=== PATIENT | female | born 1965 | race Caucasian/White ===

== ENCOUNTER 2018-11-09 18:27 | Emergency (ER) | payer OTHER, BC ==
[2018-11-09] MEDS ORDERED: Diphtheria,Pertussis(Acell),Tetanus Vaccine 0.5 ML Syringe IM ONE (18:29)
[2018-11-09] MEDS ORDERED: Bacitracin Oint 1 GM U/D Packet TOP ONE (18:30)
[2018-11-09] MEDS ORDERED: Octyl 2-Cyanoacrylate 1 Tube TOP ONE (19:01)
--- NOTE | 2018-11-09 19:08 | EDM.PDOC ---
ED HPI GENERAL MEDICAL PROBLEM - General Chief Complaint: Laceration Stated Complaint: CUT HAND AT WORK Time Seen by Provider: 11/09/18 18:30 Source of Information: Reports: Patient History Limitations: Reports: No Limitations - History of Present Illness INITIAL COMMENTS - FREE TEXT/NARRATIVE: HISTORY AND PHYSICAL: History of present illness: Patient is a 53-year-old female who presents to the emergency room with complaints of a laceration to the inner right forearm. She states that a glass door Broke resulting in a superficial laceration of the right inner forearm. She is concerned as there was a moderate amount of bleeding. She is unsure of her last tetanus update. Appears to have no tendon involvement and she does have full range of motion of the wrist, hand and fingers. Review of systems: As per history of present illness and below otherwise all systems reviewed and negative. Past medical history: As per history of present illness and as reviewed below otherwise noncontributory. Surgical history: As per history of present illness and as reviewed below otherwise noncontributory. Social history: See social history for further information Family history: As per history of present illness and as reviewed below otherwise noncontributory. Physical exam: General: Well-developed and well-nourished 53-year-old female. Alert and oriented. Nontoxic appearing and in no acute distress. HEENT: Atraumatic, normocephalic, pupils equal and reactive bilaterally, negative for conjunctival pallor or scleral icterus, mucous membranes moist, TMs normal bilaterally, throat clear, neck supple, nontender, trachea midline. No drooling or trismus noted. No meningeal signs. No hot potato voice noted. Lungs: Clear to auscultation, breath sounds equal bilaterally, chest nontender. Heart: S1S2, regular rate and rhythm without overt murmur Abdomen: Soft, nondistended, nontender. Negative for masses or hepatosplenomegaly. Negative for costovertebral tenderness. Pelvis: Stable nontender. Genitourinary: Deferred. Rectal: Deferred. Skin: 1.5 cm x 1.5 cm "X" superficial laceration to the right inner wrist. Unable to separate the skin therefore sutures cannot be placed. Does have a small 0.5 superficial laceration to the base of the left thumb. Otherwise skin is intact, warm, dry. No lesions or rashes noted. Extremities: Atraumatic, negative for cords or calf pain. Neurovascular unremarkable. Neuro: Awake, alert, oriented. Cranial nerves II through XII unremarkable. Cerebellum unremarkable. Motor and sensory unremarkable throughout. Exam nonfocal. Notes: Area is unable to be sutured closed as it is superficial. Area was thoroughly cleansed with chlorhexidine. Dermabond used to right wrist. Nonstick dressing applied with an Jonnathan wrap as it does appear like it is kind of bruise. The left thumb lack was cleansed and bacitracin applied. Supportive care measures were reviewed and discussed. Voices understanding and is agreeable to plan of care. Denies any further questions or concerns at this time. Diagnostics: None Therapeutics: Tdap, Dermabond, wound care, jonnathan wrap Prescription: None Impression: Laceration Plan: 1. Keep the area clean and dry. Continue to monitor for signs of infection. Sutures to be removed in 7-10 days. 2. Tylenol and/or ibuprofen as needed for pain management. 3. Please follow-up with your primary care provider in the next 1-2 days. Return to the ED as needed and as discussed. Definitive disposition and diagnosis as appropriate pending reevaluation and review of above. Generalized Pain Score (Numeric/FACES): 2 - Related Data Allergies Allergy/AdvReac Type Severity Reaction Status Date / Time Sulfa (Sulfonamide Allergy Rash Verified 11/09/18 18:41 Antibiotics) Home Meds: Home Meds ALPRAZolam [Alprazolam] 0.5 mg PO BEDTIME PRN 05/30/14 [History] ALPRAZolam [Alprazolam] 1 tab PO PRN 05/30/14 [History] Brimonidine Tartrate 5 ml OP ASDIRECTED 05/30/14 [History] Cholecalciferol (Vitamin D3) [Vitamin D3] 1 tab PO ASDIRECTED 05/30/14 [History] Cyclobenzaprine [Flexeril] 10 mg PO TID PRN 05/30/14 [History] Fish Oil/[place]-3 Fatty Acids [Fish Oil 1,000 MG] 1 tab PO ASDIRECTED 05/30/14 [ History] Multivitamin [Multi-Vitamin Daily] 1 tab PO DAILY 05/30/14 [History] Ranitidine HCl [Ranitidine] 1 tab PO PRN 05/30/14 [History] Lisinopril 10 mg PO BID 11/09/18 [History] Past Medical History 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 ED EXAM, SKIN/RASH Exam: See Below (See dictation) ED SKIN PROCEDURES - Laceration/Wound Repair Right wrist Lac/Wound length In cm: 3 (1.5 x 1.5) Appearance: Superficial, Clean Distal NVT: Neuro & Vascular Intact, No Tendon Injury Closed with: Dermabond Sterile Dressing Applied: None Tetanus Status Addressed: Yes Complications: No Course - Vital Signs Last Recorded V/S: Last Vital Signs Temp 97.4 F 11/09/18 18:44 Pulse 95 11/09/18 18:44 Resp 17 11/09/18 18:44 BP 164/94 H 11/09/18 18:44 Pulse Ox 95 11/09/18 18:44 - Orders/Labs/Meds Orders: Active Orders 24 hr Category Date Time Status Communication Order [RC] STAT Care 11/09/18 18:30 Active Vaccines to be Administered [RC] PER UNIT ROUTINE Care 11/09/18 18:30 Active Octyl 2-Cyanoacrylate [Dermabond Advance] Med 11/09/18 19:01 Once 1 applic TOP ONETIME ONE Meds: Medications Discontinued Medications Generic Name Dose Route Start Last Admin Trade Name Freq PRN Reason Stop Dose Admin Bacitracin 1 dose 11/09/18 18:30 Bacitracin Oint 1 Gm TOP 11/09/18 18:31 ONETIME ONE Diphtheria/Tetanus/Acell Pertussis 0.5 ml 11/09/18 18:29 Adacel IM 11/09/18 18:30 .ONCE ONE Lidocaine HCl 5 ml 11/09/18 18:29 Xylocaine-Mpf 1% INJECT 11/09/18 18:30 ONETIME ONE Departure - Departure Time of Disposition: 19:08 Disposition: Home, Self-Care 01 Clinical Impression: Laceration - Discharge Information Instructions: Laceration Care, Adult, [id number] Referrals: PCP,None [Primary Care Provider] - Additional Instructions: The following information is given to patients seen in the emergency department who are being discharged to home. This information is to outline your options for follow-up care. We provide all patients seen in our emergency department with a follow-up referral. The need for follow-up, as well as the timing and circumstances, are variable depending upon the specifics of your emergency department visit. If you don't have a primary care physician on staff, we will provide you with a referral. We always advise you to contact your personal physician following an emergency department visit to inform them of the circumstance of the visit and for follow-up with them and/or the need for any referrals to a consulting specialist. The emergency department will also refer you to a specialist when appropriate. This referral assures that you have the opportunity for follow-up care with a specialist. All of these measure are taken in an effort to provide you with optimal care, which includes your follow-up. Under all circumstances we always encourage you to contact your private physician who remains a resource for coordinating your care. When calling for follow-up care, please make the office aware that this follow-up is from your recent emergency room visit. If for any reason you are refused follow-up, please contact the [facility] Emergency Department at and asked to speak to the emergency department charge nurse. [facility] [address] [place] [id number] [facility] [address] [place] [id number] 1. Keep the area clean and dry. Continue to monitor for signs of infection. Sutures to be removed in 7-10 days. 2. Tylenol and/or ibuprofen as needed for pain management. 3. Please follow-up with your primary care provider in the next 1-2 days. Return to the ED as needed and as discussed. - My Orders Last 24 Hours: My Active Orders 11/09/18 18:30 Communication Order [RC] STAT Vaccines to be Administered [RC] PER UNIT ROUTINE 11/09/18 19:01 Octyl 2-Cyanoacrylate [Dermabond Advance] 1 applic TOP ONETIME ONE - Assessment/Plan Last 24 Hours: My Active Orders 11/09/18 18:30 Communication Order [RC] STAT Vaccines to be Administered [RC] PER UNIT ROUTINE 11/09/18 19:01 Octyl 2-Cyanoacrylate [Dermabond Advance] 1 applic TOP ONETIME ONE
[2018-11-09 19:29] VITALS: BP 178/100
== END 2018-11-09 19:23 | disposition home or self-care (01) ==
LOC: MW.ED 18:27
DX: S51.811A Laceration without foreign body of right forearm, initial encounter (principal); S61.012A Laceration without foreign body of left thumb without damage to nail, initial encounter; Z88.2 Allergy status to sulfonamides; Z98.890 Other specified postprocedural states; Z79.899 Other long term (current) drug therapy; Z23 Encounter for immunization; W26.8XXA Contact with other sharp object(s), not elsewhere classified, initial encounter; Y99.0 Civilian activity done for income or pay
CPT/HCPCS: 12002; 90471; 90715; 99282; A9270

== ENCOUNTER 2019-06-16 10:00 | Day surgery (SDC) | payer BC ==
[~2019-06-16 10:00] MED LIST: Lactated Ringers 1,000 ML IV SCH; Propofol 200 MG/20 ML SDV ONE; Sodium Chloride 0.9% 10 ML SDV IV PRN; Sodium Chloride 0.9% 10 ML Syringe FLUSH PRN; Sodium Chloride 0.9% 2.5 ML Syringe FLUSH PRN
--- NOTE | 2019-06-16 11:03 | PCM.PREANE ---
Preanesthetic Assessment - Anesthesia/Transfusion/Family Hx Anesthesia History: Prior Anesthesia Reaction Other Type of Anesthesia Reaction Comment: high blood pressure during dental procedure Family History of Anesthesia Reaction: No Transfusion History: Prior Transfusion Without Reaction Intubation History: Unknown - Review of Systems General: No Symptoms Pulmonary: No Symptoms Cardiovascular: No Symptoms Gastrointestinal: No Symptoms, Other (h/o tubular adenoma of descending colon 5 years ago) Neurological: No Symptoms Other: Reports: None - Physical Assessment Height: 5 ft 2 in Weight: 79.379 kg ASA Class: 2 Mental Status: Alert & Oriented x3 Airway Class: Mallampati = 2 Dentition: Reports: Normal Dentition, Bridge (fixed lower front) Thyro-Mental Finger Breadths: 2 Mouth Opening Finger Breadths: 2 ROM/Head Extension: Full Lungs: Clear to Auscultation, Normal Respiratory Effort Cardiovascular: Regular Rate, Regular Rhythm - Allergies Allergies/Adverse Reactions: Allergies Allergy/AdvReac Type Severity Reaction Status Date / Time Sulfa (Sulfonamide Allergy Rash Verified 06/10/19 13:25 Antibiotics) - Blood Blood Available: No - Anesthesia Plan Pre-Op Medication Ordered: None - Acknowledgements Anesthesia Type Planned: MAC Pt an Appropriate Candidate for the Planned Anesthesia: Yes Alternatives and Risks of Anesthesia Discussed w Pt/Guardian: Yes Pt/Guardian Understands and Agrees with Anesthesia Plan: Yes PreAnesthesia Questionnaire HEENT History: Reports: Allergic Rhinitis, Glaucoma, Other (See Below) Other HEENT History: wears glasses, has lower permanent front dental bridge Cardiovascular History: Reports: High Cholesterol, Hypertension Other Respiratory History: uses inhaler when has URI Gastrointestinal History: Reports: Colon Polyp, Irritable Bowel Syndrome, Other (See Below) Other Gastrointestinal History: hx of heartburn- takes OTC medication Genitourinary History: Reports: Other (See Below) Other Genitourinary History: hx of sepsis 7 years ago- unknown cause- in ICU under sedation for 10 days VASCULAR SURGEON History: Reports: Other (See Below) Other OB/BYN History: D & C Musculoskeletal History: Reports: Arthritis, Back Pain, Chronic Psychiatric History: Reports: Anxiety Endocrine/Metabolic History: Reports: Obesity/BMI 30+ Hematologic History: Reports: Blood Transfusion(s) Dermatologic History: Reports: Other (See Below) Other Dermatologic History: dermatitis on scalp - Infectious Disease History Infectious Disease History: Reports: Chicken Pox - Past Surgical History Head Surgeries/Procedures: Reports: None HEENT Surgical History: Reports: Oral Surgery Other HEENT Surgeries/Procedures: hx of 4 teeth removed GI Surgical History: Reports: Colonoscopy (x2 '05,'14) Female Surgical History: Reports: D&C - SUBSTANCE USE Smoking Status *Q: Former Smoker Tobacco Use Within Last Twelve Months: No Recreational Drug Use History: No - HOME MEDS Home Medications: Home Meds ALPRAZolam [Alprazolam] 0.25 - 0.5 mg PO BID PRN 05/30/14 [History] Brimonidine Tartrate 1 drop EYEBOTH QAM 05/30/14 [History] Cyclobenzaprine [Flexeril] 10 mg PO TID PRN 05/30/14 [History] Fish Oil/[place]-3 Fatty Acids [Fish Oil 1,000 MG] 1,200 mg PO DAILY 05/30/14 [ History] Multivitamin [Multi-Vitamin Daily] 1 tab PO DAILY 05/30/14 [History] Lisinopril 20 mg PO BID 11/09/18 [History] Albuterol [Ventolin HFA] 1 - 2 puff INH Q4H PRN 06/10/19 [History] Ascorbic Acid/Ascorbate Sodium [Vitamin C 250 mg Tablet Chew] 1 tab PO TID 06/10 [History] Cholecalciferol (Vitamin D3) [Vitamin D3] 2,000 unit PO DAILY 06/10/19 [History] Dicyclomine HCl [Bentyl] 20 mg PO BID PRN 06/10/19 [History] Fluocinonide 1 applic TOP BEDTIME PRN 06/10/19 [History] Ketoconazole [Nizoral 2% Shampoo] 1 applic TOP ASDIRECTED PRN 06/10/19 [History] Pravastatin Sodium 10 mg PO DAILY 06/10/19 [History] Ubidecarenone [Co Q-10] 100 mg PO DAILY 06/10/19 [History] - CURRENT (IN HOUSE) MEDS Current Meds: Current Medications Lactated Ringer's (Ringers, Lactated) 1,000 mls @ 125 mls/hr IV ASDIRECTED ANT Sodium Chloride (Saline Flush) 10 ml FLUSH ASDIRECTED PRN PRN Reason: Keep Vein Open Sodium Chloride (Saline Flush) 2.5 ml FLUSH ASDIRECTED PRN PRN Reason: Keep Vein Open Sodium Chloride (Saline Flush) 10 ml FLUSH ASDIRECTED PRN PRN Reason: Keep Vein Open Sodium Chloride (Saline Flush) 2.5 ml FLUSH ASDIRECTED PRN PRN Reason: Keep Vein Open Sodium Chloride (Normal Saline) 10 ml IV ASDIRECTED PRN PRN Reason: IV Use Discontinued Medications Propofol (Diprivan 20 Ml) Confirm Administered Dose 400 mg .[facility] .[facility] Stop: 06/16/19 09:28
--- NOTE | 2019-06-16 12:03 | PCM.POSTAN ---
POST ANESTHESIA ASSESSMENT - MENTAL STATUS Mental Status: Alert, Oriented - VITAL SIGNS Vital Signs: Last Vital Signs Temp 36.0 C 06/16/19 10:35 Pulse 79 06/16/19 11:50 Resp 14 06/16/19 11:50 BP 136/69 06/16/19 11:50 Pulse Ox 98 06/16/19 11:50 - RESPIRATORY Respiratory Status: Respiratory Rate WNL, Airway Patent, O2 Saturation Stable - CARDIOVASCULAR CV Status: Pulse Rate WNL, Blood Pressure Stable - GASTROINTESTINAL GI Status: No Symptoms - PAIN Pain Score: 0 - POST OP HYDRATION Hydration Status: Adequate & Stable - OBSERVATIONS Free Text/Narrative:: no anesthesia problems
--- NOTE | 2019-06-16 12:25 | PCM48HPAN ---
Post Anesthesia Note - EVALUATION WITHIN 48HRS OF ANESTHETIC Vital Signs in Normal Range: Yes Patient Participated in Evaluation: Yes Respiratory Function Stable: Yes Airway Patent: Yes Cardiovascular Function Stable: Yes Hydration Status Stable: Yes Pain Control Satisfactory: Yes Nausea and Vomiting Control Satisfactory: Yes Mental Status Recovered: Yes Vital Signs: Last Vital Signs Temp 36.0 C 06/16/19 10:35 Pulse 79 06/16/19 11:50 Resp 14 06/16/19 11:50 BP 136/69 06/16/19 11:50 Pulse Ox 98 06/16/19 11:50 - COMMENTS/OBSERVATIONS Free Text/Narrative:: no anesthesia problems
--- NOTE | 2019-06-16 13:07 | PCM.OPNOTE ---
- General Post-Op/Procedure Note Date of Surgery/Procedure: 06/16/19 Operative Procedure(s): Screening colonoscopy with polypectomy Findings: Sigmoid colon polyps x 3 Pre Op Diagnosis: History of colon polyps Post-Op Diagnosis: Sigmoid colon polyps x 3 Anesthesia Technique: MATT Primary Surgeon: Shana Jimenez Condition: Good
[2019-06-16 13:54] VITALS: BP 139/75; PULSE 72
--- NOTE | 2019-06-16 14:49 | OR ---
SURGEON: SHANA JIMENEZ MD DATE OF PROCEDURE: 06/16/2019 PREOPERATIVE DIAGNOSIS: History of colon polyps. POSTOPERATIVE DIAGNOSIS: Sigmoid colon polyps x3. PROCEDURE PERFORMED: Screening colonoscopy with polypectomy. PRIMARY SURGEON: Shana Jimenez MD. ANESTHESIA: MAC. INSTRUMENT USED: Olympus colonoscope. EXTENT OF EXAM: To the cecum. PREPARATION: Good. LIMITATIONS: None. INDICATION FOR EXAMINATION: The patient is a 54-year-old female who presents for repeat 5-year colonoscopy after having found colon polyps on her last colonoscopy. I explained the procedure, expected perioperative course, and risks including bleeding, infection, or damage to surrounding structures including perforation. The patient verbalized understanding and wishes to proceed. PROCEDURE IN DETAIL: The patient was brought to the endoscopy suite and placed in the left lateral decubitus position. A time-out was completed verifying the patient's name, age, date of , allergies, and procedure to be performed. Monitored anesthesia care was induced and continuous oxygen was provided via nasal cannula throughout the procedure. After adequate sedation was achieved, a digital rectal exam was performed. This exam was within normal limits. A well-lubricated colonoscope was inserted in the rectum and advanced under direct visualization to the level of the cecum. The cecum was identified by both visual and anatomic landmarks. A photograph was taken of the cecal cap. However, I was unable to retroflex the scope within the cecum due to looping of the scope more proximally. The scope was then fully withdrawn while examining the color, texture, anatomy, and integrity of the mucosa from the cecum to the anal canal. The patient was found to have 3 sessile colon polyps in the sigmoid colon. These were all removed in piecemeal fashion using a cold biopsy forceps. The scope was then brought into the rectum and retroflexed to allow visualization of the anal canal opening. This appeared normal and a photograph was taken. The scope was then straightened out and fully withdrawn. The cecum to anus time was 11 minutes. The patient tolerated the procedure well, was transferred to the PACU in stable condition. ENDOSCOPIC DIAGNOSIS: Sigmoid colon polyps x3. RECOMMENDATIONS: Follow up in clinic in 2 weeks. LUIS MIGUEL BRAY /[id number]
== END 2019-06-16 12:30 | disposition home or self-care (01) ==
LOC: MW.SDS 10:00
PROVIDERS: ATTEND Surgery
DX: Z12.11 Encounter for screening for malignant neoplasm of colon (principal); K63.5 Polyp of colon; K58.9 Irritable bowel syndrome, unspecified; I10 Essential (primary) hypertension; E78.00 Pure hypercholesterolemia, unspecified; E55.9 Vitamin D deficiency, unspecified; E66.9 Obesity, unspecified; F41.9 Anxiety disorder, unspecified; F17.200 Nicotine dependence, unspecified, uncomplicated; H40.9 Unspecified glaucoma; Z88.2 Allergy status to sulfonamides; Z68.32 Body mass index [BMI] 32.0-32.9, adult; Z86.010 Personal history of colon polyps; Z83.79 Family history of other diseases of the digestive system; Z79.899 Other long term (current) drug therapy
CPT/HCPCS: 45380; J2704; J7120

== ENCOUNTER 2024-04-07 09:29 | Day surgery (SDC) | payer BC ==
[~2024-04-07 09:29] MED LIST changes: -Lactated Ringers 1,000 ML IV SCH; -Propofol 200 MG/20 ML SDV ONE; -Sodium Chloride 0.9% 10 ML SDV IV PRN; +Sodium Chloride 0.9% 20 ML SDV IV PRN
[2024-04-07] MEDS: Lactated Ringers 1,000 ML IV SCH (10:05)
[2024-04-07] MEDS ORDERED: propofoL 50 ML ONE (11:45)
[2024-04-07 12:40] VITALS: PULSE 72
[2024-04-07 13:03] VITALS: BP 117/73
== END 2024-04-07 13:08 | disposition home or self-care (01) ==
LOC: MW.SDS 09:29
PROVIDERS: ATTEND Surgery
DX: Z12.11 Encounter for screening for malignant neoplasm of colon (principal); K63.5 Polyp of colon; K62.1 Rectal polyp; K57.30 Diverticulosis of large intestine without perforation or abscess without bleeding; F41.9 Anxiety disorder, unspecified; I10 Essential (primary) hypertension; E78.00 Pure hypercholesterolemia, unspecified; E66.9 Obesity, unspecified; Z68.33 Body mass index [BMI] 33.0-33.9, adult; Z87.891 Personal history of nicotine dependence; Z79.899 Other long term (current) drug therapy; Z88.2 Allergy status to sulfonamides; Z86.010 Personal history of colon polyps
CPT/HCPCS: 45380; J2704; J7120

== ENCOUNTER 2024-06-26 12:13 | Emergency (ER) | payer BC ==
[2024-06-26 12:26] VITALS: BP 149/71
[2024-06-26] MEDS: Orphenadrine 60 MG/2 ML Inj IM ONE (13:00)
[2024-06-26] MEDS: Ketorolac 30 MG/ML SDV IM ONE (13:01)
[2024-06-26 13:37] VITALS: PULSE 88
== END 2024-06-26 13:37 | disposition home or self-care (01) ==
LOC: MW.ED 12:13
DX: M54.50 Low back pain, unspecified (principal); E78.00 Pure hypercholesterolemia, unspecified; I10 Essential (primary) hypertension; E66.9 Obesity, unspecified; Z68.32 Body mass index [BMI] 32.0-32.9, adult; Z79.899 Other long term (current) drug therapy; Z88.2 Allergy status to sulfonamides; Z75.8 Other problems related to medical facilities and other health care
CPT/HCPCS: 96372; 99283; J1885; J2360; 99284

== ENCOUNTER 2024-10-18 10:09 | Emergency (ER) | payer BC ==
[2024-10-18] MEDS ORDERED: Sodium Chloride 0.9% 10 ML Syringe FLUSH PRN (10:26)
[2024-10-18] MEDS ORDERED: Sodium Chloride 0.9% 2.5 ML Syringe FLUSH PRN (10:26)
[2024-10-18 10:50] LABS: BASOPHILS ABSOLUTE AUTO 0.04 K/uL (0.00-0.20); BASOPHILS PERCENT AUTO 0.6 % (0.0-1.0); EOSINOPHILS ABSOLUTE AUTO 0.02 K/uL (0.00-0.45); EOSINOPHILS PERCENT AUTO 0.3 % (0.0-6.0); HEMATOCRIT 38.9 % (37.0-47.0); HEMOGLOBIN 13.4 g/dL (12.0-16.0); IMMATURE GRAN ABSOLUTE AUTO 0.02 K/uL (0.00-0.05); IMMATURE GRAN PERCENT AUTO 0.3 % (0.0-0.4); LYMPHOCYTES ABSOLUTE AUTO 1.95 K/uL (1.00-4.80); LYMPHOCYTES PERCENT AUTO 30.9 % (24.0-44.0); MEAN CORPUSCULAR HEMOGLOBIN 30.7 pg (28.0-32.0); MEAN CORPUSCULAR HGB CONC 34.4 g/dL (32.0-36.0); MEAN PLATELET VOLUME 8.9 fL (9.4-12.3); MONOCYTES ABSOLUTE AUTO 0.49 K/uL (0.00-0.80); MONOCYTES PERCENT AUTO 7.8 % (0.0-8.0); NEUTROPHILS PERCENT AUTO 60.1 % (41.0-71.0); PLATELET COUNT,PLT 242 K/uL (150-400); RED BLOOD CELL COUNT 4.37 M/uL (4.10-5.30); WHITE BLOOD CELL COUNT,WBC 6.32 K/uL (3.9-11.3)
[2024-10-18] MEDS: Ondansetron 4 MG/2 ML SDV IVPUSH STA (10:53)
[2024-10-18] MEDS: Morphine 4 MG/ML Syringe IVPUSH STA (10:54)
[2024-10-18 11:17] LABS: A/G RATIO 1.1 (0.9-1.6); ALANINE AMINOTRANSFERASE,ALT 35 IU/L (14-63); ALBUMIN 3.6 g/dL (3.4-5.0); ALKALINE PHOSPHATASE 103 U/L (46-116); ASPARTATE AMNIOTRANSFERASE,AST 21 IU/L (15-37); BILIRUBIN TOTAL 0.5 mg/dL (0.2-1.0); BLOOD UREA NITROGEN,BUN 15 mg/dL (7.0-18.0); CALCIUM 8.7 mg/dL (8.5-10.1); CARBON DIOXIDE,CO2 22.3 mmol/L (21.0-32.0); CHLORIDE,CL 102 mmol/L (98-107); GLUCOSE RANDOM 112 mg/dL (74-106); POTASSIUM,K 4.7 mmol/L (3.5-5.1); SODIUM,NA 137 mmol/L (136-145)
[2024-10-18 11:19] LABS: ESTIMATED GFR 64 mL/min (>60)
[2024-10-18 13:53] VITALS: BP 150/80; PULSE 91
== END 2024-10-18 13:53 | disposition home or self-care (01) ==
LOC: MW.ED 10:09
DX: S76.312A Strain of muscle, fascia and tendon of the posterior muscle group at thigh level, left thigh, initial encounter (principal); S93.491A Sprain of other ligament of right ankle, initial encounter; I10 Essential (primary) hypertension; E78.00 Pure hypercholesterolemia, unspecified; E66.9 Obesity, unspecified; Z88.2 Allergy status to sulfonamides; Z79.899 Other long term (current) drug therapy; Z75.8 Other problems related to medical facilities and other health care; W00.0XXA Fall on same level due to ice and snow, initial encounter
CPT/HCPCS: 36415; 73552; 73610; 80053; 85025; 96374; 96375; 99283; J2270; J2405